=== PATIENT | male | born 1995 | race Caucasian/White ===

== ENCOUNTER 2020-10-19 08:15 | Emergency (ER) | payer OTHER, SELFPAY ==
[2020-10-19 08:15] VITALS: BP 134/70; PULSE 84; RESP 16; TEMP 36.8; O2SAT 98; BMI 26.6
--- NOTE | 2020-10-19 08:28 | XR_ITS ---
PROCEDURE: XR HAND RT MIN 3V CLINICAL INDICATION: injury at wokr Posttraumatic pain COMPARISON: No exams were available for comparison FINDINGS: No fracture or dislocation. No lytic or blastic change. There is normal mineralization. The joint spaces are well-preserved. No significant degenerative/arthritic changes. No erosive changes evident. Other findings:None. IMPRESSION: No acute findings. Dictated by: Eimliano Apodaca MD 10/19/2020 10:04 Emiliano Apodaca MD in [place] 10/19/2020 10:04
--- NOTE | 2020-10-19 08:28 | XR_ITS ---
PROCEDURE: XR FOREARM RT 2V CLINICAL INDICATION: injury at work Pain COMPARISON: No exams were available for comparison FINDINGS: No fracture or dislocation. No lytic or blastic change. There is normal mineralization. The joint spaces are well-preserved. No significant degenerative/arthritic changes. No erosive changes evident. Other findings:None. IMPRESSION: No acute findings. Dictated by: Emiliano Apodaca MD 10/19/2020 10:05 Emiliano Apodaca MD in [place] 10/19/2020 10:05
[2020-10-19 09:18] VITALS: BP 152/85; PULSE 72; RESP 18; O2SAT 97
--- NOTE | 2020-10-19 09:33 | [facility].EDEXTP ---
ED Disposition Clinical Impression: Sprain of right forearm Qualifiers: Encounter type: initial encounter Qualified Code(s): S63.501A - Unspecified sprain of right wrist, initial encounter Disposition: Home, Self-Care Condition on Discharge: Good Instructions: DI for Wrist Strain Prescriptions: Ibuprofen [Ibuprofen 800mg Tablet] 800 mg PO TIDP PRN #20 tab PRN Reason: Moderate Pain Prescription Printed Referrals: PCP,No [Primary Care Provider] - - Critical Care Critical Care Time: No Attestation: On 10/19/20, the high probability of a clinically significant, sudden or life threatening deterioration of the following system(s) required my full and direct attention, intervention and personal management. The time I documented below is in addition to time spent performing reported procedures but includes the following listed in this critical care notation. Medical Decision Making - Medical Records Medical records reviewed: Yes: I reviewed the patient's medical records. - Harinder Inquiry Pt receiving controlled substance: Yes Harinder was queried for this patient: No Reason not queried -: Emergent pt cond-no time Risks and benefits of using a controlled substance: were discussed with pt by me Vital Signs: 10/19/20 08:15 10/19/20 09:18 Temperature 98.2 F Temperature Source Oral Pulse Rate [Right] 84 72 Respiratory Rate 16 18 Blood Pressure [Right Arm] 134/70 152/85 H Blood Pressure Mean [Right Arm] 91 107 Blood Pressure Source [Right Arm] Automatic Cuff Blood Pressure Position [Right Arm] Sitting 02 Sat by Pulse Oximetry 98 97 Oxygen Delivery Method Room Air Orders (Tests/Meds): ED MEDICATIONS Discontinued Medications Generic Name Dose Route Start Last Admin Trade Name Freq PRN Reason Stop Dose Admin Hydrocodone Bitart/Acetaminophen 1 tab 10/19/20 08:46 10/19/20 09:39 Hydrocodone/Apap 5/325 Mg Tablet PO 10/19/20 08:47 1 tab ONCE ONE Administration ORDERS Category Date Time Status XR forearm RT 2V Stat Exams 10/19/20 08:28 Taken XR hand RT min 3V Stat Exams 10/19/20 08:28 Taken - Radiology Data #1 Image(s): Forearm, Hand Image Reviewed: Yes I reviewed the patient's radiology results, Yes I reviewed the patient's radiology image Preliminary Findings: Normal/NAD, No Fracture Seen - Reevaluation(s) Time: 09:56 Reevaluation #1: On reevaluation, pain is improved. Patient needs follow-up with PCP. Given strict return precautions. Verbalized understanding. Medical Decision Narrative: 25-year-old male presented to the emergency department with right forearm pain after crush injury. There is no signs of compartment syndrome at this time. Work-up initiated. Extremity Problem HPI - General Chief complaint: Extremity Injury, Upper Stated complaint: [id number] right hand injury Time Seen by Provider: 10/19/20 08:20 Mode of Arrival: Ambulatory Limitations: No Limitations Description of Symptoms (Recalled from ER Triage Doc. by RN): pt advises he was at work and injured his right forearm/hand - History of Present Illness HPI Narrative: 25-year-old male presented to the emergency department with right forearm injury. The patient was at work when he had a barrel come down and hit his right arm. He is complaining of some pain in his distal right forearm as well as his hand. Dull in nature. Nonradiating. Patient is able to move his hand, however it does elicit some pain. Denies any other injuries. Is not having decreased sensation. Denies any chest pain or shortness of breath. Abdominal pain or vomiting. No headache or change in vision. No focal weakness. - Related Data Previous Rx's Medication Instructions Recorded Ibuprofen [Ibuprofen 800mg 800 mg PO TIDP PRN #20 tab 10/19/20 Tablet] Allergies Allergy/AdvReac Type Severity Reaction Status Date / Time No Known Allergies Allergy Verified 10/19/20 08:28 [facility] History
[2020-10-19 10:02] VITALS: BP 142/70; PULSE 70; RESP 16; TEMP 36.8; O2SAT 98
== END 2020-10-19 10:03 | disposition home or self-care (01) ==
PROVIDERS: Emergency Provider Emergency Medicine
DX: S63.501A Unspecified sprain of right wrist, initial encounter (principal); W22.8XXA Striking against or struck by other objects, initial encounter; Y92.63 Factory as the place of occurrence of the external cause; Y99.0 Civilian activity done for income or pay
CPT/HCPCS: 73090; 73130; 99282

== ENCOUNTER 2021-01-20 19:12 | Emergency (ER) | payer SELFPAY ==
--- NOTE | 2021-01-20 19:13 | PC.NURSE ---
Brandy [employer] Executive was in the room with the patient that had been brought in per EMS for an overdose. EMS had narcanned NURSING TECHN. Pt was in the room saying that he wanted to leave the hospital and this was the first time anything like this had happened. He advised he didn't feel like he needed any further treatment. Pt was advised that narcan could wear off and he could have further side effects from the overdose. He was advised that if he needed any further treatment to return to hospital. PT was agreeable and advised he understood. Patient signed AMA form and IV was removed. Pt left with no complications. never seen patient.
--- NOTE | 2021-01-20 19:13 | HMH.EDGENADL ---
ED Disposition Clinical Impression: Overdose opiate Qualifiers: Encounter type: initial encounter Injury intent: undetermined intent Qualified Code(s): T40.604A - Poisoning by unspecified narcotics, undetermined, initial encounter Disposition: Left Without Being Seen Condition on Discharge: Unable to assess - Critical Care Critical Care Time: No Attestation: On , the high probability of a clinically significant, sudden or life threatening deterioration of the following system(s) required my full and direct attention, intervention and personal management. The time I documented below is in addition to time spent performing reported procedures but includes the following listed in this critical care notation. Medical Decision Making - Harinder Inquiry Pt receiving controlled substance: No General Adult HPI - General Stated complaint: overdose Time Seen by Provider: 01/20/21 19:13 Mode of Arrival: EMS - History of Present Illness HPI narrative: 25-year-old male brought in by EMS for overdose. He was provided 4 mg of Narcan in the field. Upon arrival he was alert and oriented. The patient signed out of the ER AMA before he was even able to be fully registered. I never saw the patient nor was I able to examine him - Related Data Previous Rx's Medication Instructions Recorded Ibuprofen [Ibuprofen 800mg 800 mg PO TIDP PRN #20 tab 10/19/20 Tablet] Allergies Allergy/AdvReac Type Severity Reaction Status Date / Time No Known Allergies Allergy Verified 10/19/20 08:28 [facility] History - Hepatitis A Screen Attestation statement:: This patient has been screened for Hepatitis A risk factors. ROS Obtained: Yes other Physical Exam - General General appearance: other - Respiratory Respiratory exam: Present: other - Cardiovascular Cardiovascular exam: Present: other - Neurological Exam Neurological exam: Present: other
[2021-01-20 19:20] VITALS: BP 0/0; PULSE 0; RESP 0; TEMP -17.7; TEMP 0; O2SAT 0
== END 2021-01-20 19:21 | disposition left against medical advice (07) ==
LOC: ER 19:16
PROVIDERS: Emergency Provider Family Medicine
DX: Z53.21 Procedure and treatment not carried out due to patient leaving prior to being seen by health care provider (principal); T40.604A Poisoning by unspecified narcotics, undetermined, initial encounter
CPT/HCPCS: 99211